=== PATIENT | male | born 1955 | race Caucasian/White ===

== ENCOUNTER 2017-09-02 20:29 | Inpatient (IN) ==
[2017-09-02] MEDS ORDERED: *HR* OxyCODONE/APAP 5/325 TABLET PO ONE (21:32)
--- NOTE | 2017-09-02 21:38 | Emergency Department Note ---
START Narrative - START START: I examined this patient and my medical decision-making was reviewed with the [employer] PROFESSOR/PA/Advanced Practice Nurse/Resident Physician. I agree with the documented findings, disposition and treatment plan as described except to the extent set forth below. ED attending note: Patient seen with emergency medicine resident Dr. BARRY. We independently evaluated the patient. We independently had [id number] contact with the patient. Please see a copy of his note for details of the history and physical, evaluation, management and disposition of this emergency Department patient. Briefly 62-year-old male presents with a day or 2 of nonexertional right flank and right chest pain he was tachycardic at rest and 117 seems regular. Patient has not seen a physician within 2 years. History of kidney stones but this "does not feel anything like that". He does have some myofascial tenderness on palpation of the right rib area. He has good breath sounds. Screening labs and EKG chest x-ray and analgesics are pending.
--- NOTE | 2017-09-02 21:44 | Emergency Department Note ---
Disposition Clinical Impression: Atrial fibrillation with RVR Pulmonary embolus Qualifiers: Pulmonary embolism type: other Chronicity: acute Acute cor pulmonale presence: without acute cor pulmonale Qualified Code(s): I26.99 - Other pulmonary embolism without acute cor pulmonale Disposition: Admitted As Inpatient Condition: Fair Time of Disposition: 00:12 Abdominal Pain HPI - General Chief Complaint: ED Abdominal Pain Stated Complaint: rt flank pain Time Seen by Provider: 09/02/17 21:16 Source: patient, family Nursing Notes Reviewed: Yes Vital Signs Reviewed: Yes - History of Present Illness HPI Narrative: Patient is a 62-year-old male who presents to [facility] ED with a chief complaint of right-sided lower chest pain. States his symptoms started earlier today. States he just recently returned from a trip to [place]. Denies any shortness of breath. No prior history of blood clots. No prior cardiac history. Patient has not been in to see a primary care physician in over 2 years. He is not on any current medications except for acid reflux. Patient is a smoker but denies any history of COPD or problems with his heart. Patient's pain is reproducible with palpation and patient feels like he may have strained himself by lifting heavy things over the last few days. Admits to a mild cough but states this is no worse than his normal smoker's cough. Pt Subjective Complaint: other (R lower chest pain) Onset (ago): day(s) Consistency: constant Pain Severity: severe Pain Scale: 9 Quality: stabbing, aching Radiation: none Migration to: no migration Improves with: nothing Worsens with: nothing Associated symptoms: Denies: nausea, vomiting, diarrhea, fever, chills Treatments prior to arrival: none - Related Data Home Medications Medication Instructions Recorded Confirmed Guaifenesin [Mucinex] 600 mg PO BID 09/02/17 09/02/17 Ibuprofen/Diphenhydramine Cit 1 each PO HS 09/02/17 09/02/17 [Advil Pm Caplet] Omeprazole Magnesium [Prilosec Otc] 20 mg PO DAILY 09/02/17 09/02/17 Allergies Allergy/AdvReac Type Severity Reaction Status Date / Time No Known Allergies Allergy Verified 09/02/17 20:56 All systems ED: reviewed and negative except as stated. Abdominal Pain PMH - Past Medical History Medical history: Reports: no medical history Male Surgical History: Reports: no surgical history Psychiatric history: Reports: no psych history - Social History Smoking status: Current every day smoker Alcohol use: Reports: none Drug use: Reports: none Physical Exam - General Limitations: no limitations General appearance: alert - Head Head exam: atraumatic, normocephalic, normal inspection - Eye Eye exam: Present: normal appearance, PERRL, EOMI - ENT ENT exam: normal exam, normal oropharynx, mucous membranes moist - Neck Neck exam: Present: normal inspection - Chest Chest inspection: Present: normal inspection, symmetric chest wall rise - Respiratory Respiratory exam: Present: normal lung sounds bilaterally - Cardiovascular Cardiovascular exam: Present: tachycardia, irregular rhythm - Abdominal Exam Abdominal exam: Present: soft, Non-Tender. Absent: tenderness, distention, guarding, rebound, rigidity - Extremities Exam Extremities exam: Present: normal inspection, full ROM. Absent: tenderness, pedal edema - Back Exam Back exam: Present: normal inspection, full ROM. Absent: tenderness - Neurological Exam Neurological exam: Present: alert, oriented X3 - Psychiatric Psychiatric exam: Present: normal affect, normal mood - Skin Skin exam: Present: warm, dry, intact, normal color Course Course Narrative: Patient seen and examined. Right-sided lower chest pain worse with inspiration and movement and palpation. Patient is hypoxemic upon my exam at 91% on room air. Due to him not having any history of COPD or prior lung disease and him not being on any oxygen at baseline, we will do a full cardiopulmonary workup. He is also tachycardic and appears to be in A. fib with RVR on the monitor. He has no prior history of this. We will get a d-dimer level to rule out PE. We will give a dose of Cardizem to see if this improves his heart rate. - Reevaluation(s) Reevaluation #1: Patient's d-dimer level elevated at 7000. We will go ahead and get a CTA of the chest. Patient's atrial fibrillation continues. He is hemodynamically stable at this time. Time: 22:10 Reevaluation #2: CTA of the chest shows segmental pulmonary emboli in all lobes of the lung. Will get coags and start heparin drip. I discussed with hospitalist Dr. Phoenix who has accepted patient for admission. Time: 00:07 Vital Signs Temperature 98.5 F 09/02/17 20:56 Pulse Rate 117 09/02/17 20:56 Respiratory Rate 18 09/02/17 20:56 Blood Pressure 138/78 09/02/17 20:56 O2 Sat by Pulse Oximetry 92 09/02/17 20:56 Temperature 98.5 F 09/02/17 20:56 Pulse Rate 134 09/02/17 23:19 Respiratory Rate 18 09/02/17 23:19 Blood Pressure 130/69 09/02/17 23:19 O2 Sat by Pulse Oximetry 96 09/02/17 23:19 Oxygen Delivery Oxygen Delivery Room Air Abdominal Pain - Medical Records Medical records reviewed: Yes I reviewed the patient's medical records. - Lab Data Lab results reviewed: Yes I reviewed the patient's lab results. Result diagrams: 09/02/17 22:02 09/02/17 22:02 Lab Results 09/02/17 09/02/17 09/02/17 Range/Units 22:02 22:02 22:02 WBC 12.4 H (4.3-11.1) K/mcL RBC 5.37 (4.19-5.50) M/mcL Hgb 15.9 (12.9-16.9) g/dL Hct 47.8 (37.5-50.1) % MCV 89.0 (83.0-100.0) fL MCH 29.6 (28.0-33.3) pg MCHC 33.3 (31.6-35.5) g/dL RDW 14.2 (11.5-14.5) % Plt Count 248 (140-400) K/mcL MPV 9.4 (9.4-12.4) fL Immature Gran % 0.4 (0-4) % Seg Neutrophils % 68.2 % Lymphocytes % 16.0 % Monocytes % 12.8 % Eosinophils % 2.1 % Basophils % 0.5 % Neutrophils # 8.5 (1.6-8.9) K/mcL Lymphocytes # 2.0 (0.6-4.6) K/mcL Monocytes # 1.6 H (0.0-1.3) K/mcL Eosinophils # 0.3 (0.0-0.6) K/mcL Basophils # 0.1 (0.0-0.2) K/mcL D-Dimer (0-500) ng/mLFEU Sodium 137 (136-145) mEq/L Potassium 4.0 (3.5-4.5) mEq/L Chloride 101 (98-109) mEq/L Carbon Dioxide 26 (19-29) mEq/L BUN 19 (8-26) mg/dL Creatinine 1.15 (0.72-1.25) mg/dL Est GFR ( Amer) > 60 (> 60) Est GFR (Non-Af Amer) > 60 (> 60) BUN/Creatinine Ratio 17 (6-26) Glucose 120 H (70-99) mg/dL Calculated Osmolality 287 (280-300) Calcium 9.7 (8.6-10.8) mg/dL Total Bilirubin 0.4 (0.2-1.2) mg/dL AST 12 (5-34) Units/L ALT 9 (0-55) Units/L Alkaline Phosphatase 75 (38-126) Units/L Troponin I 0.01 (0-0.03) ng/mL Serum Total Protein 8.3 (6.0-8.3) g/dL Albumin 3.5 (3.5-5.0) g/dL Globulin 4.8 H (2.4-3.5) g/dL Albumin/Globulin Ratio 0.7 L (1.1-2.2) 09/02/17 Range/Units 22:02 WBC (4.3-11.1) K/mcL RBC (4.19-5.50) M/mcL Hgb (12.9-16.9) g/dL Hct (37.5-50.1) % MCV (83.0-100.0) fL MCH (28.0-33.3) pg MCHC (31.6-35.5) g/dL RDW (11.5-14.5) % Plt Count (140-400) K/mcL MPV (9.4-12.4) fL Immature Gran % (0-4) % Seg Neutrophils % % Lymphocytes % % Monocytes % % Eosinophils % % Basophils % % Neutrophils # (1.6-8.9) K/mcL Lymphocytes # (0.6-4.6) K/mcL Monocytes # (0.0-1.3) K/mcL Eosinophils # (0.0-0.6) K/mcL Basophils # (0.0-0.2) K/mcL D-Dimer 7160 H (0-500) ng/mLFEU Sodium (136-145) mEq/L Potassium (3.5-4.5) mEq/L Chloride (98-109) mEq/L Carbon Dioxide (19-29) mEq/L BUN (8-26) mg/dL Creatinine (0.72-1.25) mg/dL Est GFR ( Amer) (> 60) Est GFR (Non-Af Amer) (> 60) BUN/Creatinine Ratio (6-26) Glucose (70-99) mg/dL Calculated Osmolality (280-300) Calcium (8.6-10.8) mg/dL Total Bilirubin (0.2-1.2) mg/dL AST (5-34) Units/L ALT (0-55) Units/L Alkaline Phosphatase (38-126) Units/L Troponin I (0-0.03) ng/mL Serum Total Protein (6.0-8.3) g/dL Albumin (3.5-5.0) g/dL Globulin (2.4-3.5) g/dL Albumin/Globulin Ratio (1.1-2.2) - Radiology Data Radiology results reviewed: Yes I reviewed the patient's radiology results. Chest X-Ray 09/02/17 21:31 IMPRESSION: Mild patchy airspace disease the right lung base, suggestive of atelectasis versus pneumonia. D/ / Ibrahima Espinoza MD / Ibrahima Espinoza MD Interpreting Provider: Ibrahima Espinoza MD Chest CTA 09/02/17 22:33 IMPRESSION: Evidence of pulmonary embolism which extends into all the lobes of the lung. Prominent right hilar lymph node. That could be reactive but a follow-up chest CT after resolution of acute symptoms is recommended. Findings were discussed with Dr. Rey at 8:20 pm on 09/02/2017. D/ / Ibrahima Espinoza MD / Ibrahima Espinoza MD Interpreting Provider: Ibrahima Espinoza MD - EKG Data EKG attestation: Yes I reviewed and interpreted this EKG. EKG results narrative: EKG done at 2136 shows atrial fibrillation with RVR with a rate of [address] depression in leads V3 through V6. No acute ST elevation. Findings do appear changed from prior EKG done 06/19/2010. Previously patient was in normal sinus rhythm without any signs of depression.
[2017-09-02 22:10] LABS: Basophils # 0.1 K/mcL (0.0-0.2); Basophils % 0.5 %; Eosinophils # 0.3 K/mcL (0.0-0.6); Eosinophils % 2.1 %; Hematocrit 47.8 % (37.5-50.1); Hemoglobin 15.9 g/dL (12.9-16.9); Immature Granulocytes % 0.4 % (0-4); Mean Corpuscular HGB Conc 33.3 g/dL (31.6-35.5); Mean Corpuscular Hemoglobin 29.6 pg (28.0-33.3); Mean Platelet Volume 9.4 fL (9.4-12.4); Monocytes # 1.6 K/mcL (0.0-1.3); Monocytes % 12.8 %; Neutrophils # 8.5 K/mcL (1.6-8.9); Platelet Count 248 K/mcL (140-400); Red Blood Count 5.37 M/mcL (4.19-5.50); Red Cell Distribution Width 14.2 % (11.5-14.5); Segmented Neutrophils % 68.2 %
[2017-09-02 22:25] LABS: Alanine Aminotransferase 9 Units/L (0-55); Albumin 3.5 g/dL (3.5-5.0); Albumin/Globulin Ratio 0.7 (1.1-2.2); Alkaline Phosphatase 75 Units/L (38-126); Aspartate Amino Transferase 12 Units/L (5-34); BUN/Creatinine Ratio 17 (6-26); Bilirubin,Total 0.4 mg/dL (0.2-1.2); Blood Urea Nitrogen 19 mg/dL (8-26); Calcium 9.7 mg/dL (8.6-10.8); Carbon Dioxide 26 mEq/L (19-29); Chloride 101 mEq/L (98-109); Globulin 4.8 g/dL (2.4-3.5); Glucose 120 mg/dL (70-99); Osmolality,Calculated 287 (280-300); Sodium 137 mEq/L (136-145); Total Protein 8.3 g/dL (6.0-8.3); eGFR For African Americans > 60 (> 60); eGFR For Non-African Americans > 60 (> 60)
[2017-09-02] MEDS ORDERED: *HR* Heparin 5,000 UNIT/ML VIAL IVP ONE (23:23)
[2017-09-02] MEDS ORDERED: *HR* Heparin 5,000 UNIT/ML VIAL IVP PRN ×2 (23:23)
[2017-09-02 23:53] LABS: Prothrombin Time 10.7 Seconds (9.4-12.1)
[2017-09-02 23:56] LABS: Activated Partial Thrombo Time 27.1 Seconds (26.0-36.0)
[2017-09-03] MEDS: Heparin 25,000 UNIT/500 ML D5W 25,000 UNIT/500 ML MLS IVC SCH ×2 (00:13→17:37)
[2017-09-03] MEDS ORDERED: *HR* Morphine 2 MG/ML SYRINGE IVP PRN (00:54)
[2017-09-03] MEDS ORDERED: Acetaminophen 325 MG TABLET PO PRN (00:54)
[2017-09-03] MEDS ORDERED: Naloxone 0.4 MG/ML INJ IVP PRN (00:54)
[2017-09-03] MEDS ORDERED: Ondansetron 4 MG/2 ML VIAL IVP PRN (00:54)
--- NOTE | 2017-09-03 01:07 | Internal Med History&Physical ---
Date of Encounter: 09/03/17 Time of Encounter: 23:30 Assessment and Plan (1) Pulmonary embolus Current visit: Yes Status: Acute New-onset PE. He traveled from [place] to [place]. Procoagulant workup ordered. Heme oncology need to be called in the morning. Patient is on IV heparin. Patient made aware of the complication associated with anticoagulation and treatment options discussed with patient who showed good understanding and negative and especially; made aware of risk of bleeding IN brain. Qualifiers: Pulmonary embolism type: other Chronicity: acute Acute cor pulmonale presence: without acute cor pulmonale Qualified Code(s): I26.99 - Other pulmonary embolism without acute cor pulmonale (2) Nicotine abuse Current visit: Yes Status: Acute Counseling provided (3) Chest pain Current visit: Yes Status: Acute Atypical chest pain checked serial troponins Qualifiers: Chest pain type: unspecified Qualified Code(s): R07.9 - Chest pain, unspecified (4) Atrial fibrillation with RVR Current visit: Yes Status: Acute New onset A. fib perhaps secondary to PE patient on IV heparin and IV Cardizem to check echocardiogram and TSH. Internal Medicine - H&P: HPI Chief complaint: Shortness of breath and right-sided chest pain Admitted From: Home Plans for Post Hospital Care: Home History of present illness: Mr. Barron is a 62 year old male with no significant past medical history except for GERD. Patient presented with right-sided chest pain and started this morning. 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 On EKG she was noted to have uncontrolled atrial fibrillation with RVR. IV Cardizem started to control the heart rate as well as IV heparin. Patient denies any other symptoms otherwise except for right- sided chest pain which is quite atypical and does not seem to radiate elsewhere no particular pattern or weight relation to rest or ambulation. D-dimer was noted positive therefore a CTA chest was done which showed diffuse PE in almost all lobes of the lung as well as hilar lymphadenopathy. Radiology has recommended follow-up CT chest was patient is more or less stable. As noted above echocardiogram ordered as well as ultrasound of leg and procoagulant workup. Apparently patient drove from [place]. Past Med Surg Social Fam HX - Past Medical History Medical history: no medical history Psychiatric history: no psych history - Social History Smoking Status: Current every day smoker Smokeless Tobacco Status: No Alcohol use: none Drug use: none Internal Medicine - H&P: Meds Guaifenesin [Mucinex] 600 mg PO BID 09/02/17 [History] Ibuprofen/Diphenhydramine Cit [Advil Pm Caplet] 1 each PO HS 09/02/17 [History] Omeprazole Magnesium [Prilosec Otc] 20 mg PO DAILY 09/02/17 [History] 3 Allergy/AdvReac Type Severity Reaction Status Date / Time No Known Allergies Allergy Verified 09/02/17 20:56 All Systems PM: A 10-system review of systems was performed and is negative for pertinent findings except as documented above in the HPI. - Constitutional Constitutional: no chills, no fever(s), no night sweats - EENT Eyes: no change in vision, no discharge, no pain, no photophobia Ears: no ear discharge, no ear pain, no tinnitus Nose, mouth and throat: no dysphagia, no nasal discharge, no neck pain, no sore throat - Cardiovascular Cardiovascular ROS IM: chest pain, dyspnea, no diaphoresis, no lightheadedness, no palpitations, no syncope - Respiratory Respiratory: no cough, no dyspnea, no wheezing, no excessive phlegm production - Gastrointestinal Gastrointestinal: no abdominal pain, no diarrhea, no hematemesis, no hematochezia, no melena, no nausea, no vomiting - Musculoskeletal Musculoskeletal ROS IM: no numbness, no tingling - Integumentary Integumentary IM: no rash, no unusual bruising - Neurological Neurological ROS: no confusion, no convulsions, no focal weakness, no numbness, no tingling, no tremor(s) - Hematologic/Lymphatic Hematologic/Lymphatic: no easy bruising - Constitutional Vitals: Temp Pulse Resp BP Pulse Ox 98.5 F 102 19 138/82 92 09/03/17 00:52 09/03/17 00:52 09/03/17 00:52 09/03/17 00:52 09/03/17 00:52 General appearance: Present: A&O X 3, no acute distress, answers questions appropriately - Head Head exam: Present: atraumatic, normocephalic - Eye Eye exam: Present: PERRL, conjuntiva pink, sclera anicteric Pupils: Present: PERRL - Neck Neck exam general surgery: Present: supple, trachea midline. Absent: lymphadenopathy - Respiratory Respiratory exam: Present: CTAB. Absent: accessory muscle use, rales, rhonchi, wheezes - Cardiovascular Cardiovascular exam: Present: irregular rhythm, +S1, +S2. Absent: diastolic murmur, gallop, rubs, systolic murmur - GI/Abdominal GI/Abdominal exam: Present: normal bowel sounds, soft, no peritoneal signs. Absent: distended, tenderness - Extremities Exam Extremities exam: Present: warm, radial pulses palpable and symmetrical. Absent : calf tenderness, cyanotic, pedal edema - Neurological Exam Neurological exam: Present: CN II-XII intact, oriented X3, no focal deficits. Absent: pronater drift, facial droop, speech deficit - Skin Skin exam: Present: dry, intact Internal Med - H&P Results - Labs CBC & Chem 7: 09/02/17 22:02 09/02/17 22:02
[2017-09-03 02:01] LABS: Basophils # 0.1 K/mcL (0.0-0.2); Basophils % 0.5 %; Eosinophils # 0.3 K/mcL (0.0-0.6); Eosinophils % 2.3 %; Hematocrit 44.8 % (37.5-50.1); Hemoglobin 14.9 g/dL (12.9-16.9); Immature Granulocytes % 0.4 % (0-4); Lymphocytes # 3.1 K/mcL (0.6-4.6); Lymphocytes % 23.4 %; Mean Corpuscular HGB Conc 33.3 g/dL (31.6-35.5); Mean Corpuscular Hemoglobin 29.5 pg (28.0-33.3); Mean Corpuscular Volume 88.7 fL (83.0-100.0); Mean Platelet Volume 9.8 fL (9.4-12.4); Monocytes # 1.8 K/mcL (0.0-1.3); Monocytes % 13.1 %; Platelet Count 249 K/mcL (140-400); Red Blood Count 5.05 M/mcL (4.19-5.50); Red Cell Distribution Width 14.4 % (11.5-14.5); Segmented Neutrophils % 60.3 %
[2017-09-03 02:15] LABS: Alanine Aminotransferase 9 Units/L (0-55); Albumin 3.4 g/dL (3.5-5.0); Albumin/Globulin Ratio 0.8 (1.1-2.2); Alkaline Phosphatase 70 Units/L (38-126); Aspartate Amino Transferase 10 Units/L (5-34); BUN/Creatinine Ratio 19 (6-26); Bilirubin,Total 0.4 mg/dL (0.2-1.2); Blood Urea Nitrogen 20 mg/dL (8-26); Calcium 9.4 mg/dL (8.6-10.8); Carbon Dioxide 26 mEq/L (19-29); Chloride 101 mEq/L (98-109); Chol/HDL Ratio 4.6 (0-4.9); Cholesterol 231 mg/dL (< 200); Globulin 4.3 g/dL (2.4-3.5); Glucose 113 mg/dL (70-99); HDL Cholesterol 50 mg/dL (40-59); LDL Cholesterol,Calculated 158 mg/dL (0-99); Osmolality,Calculated 285 (280-300); Potassium 3.7 mEq/L (3.5-4.5); Sodium 136 mEq/L (136-145); Total Protein 7.7 g/dL (6.0-8.3); Triglycerides 116 mg/dL (< 150); eGFR For African Americans > 60 (> 60); eGFR For Non-African Americans > 60 (> 60)
[2017-09-03] MEDS: 0.9 % Sodium Chloride 1,000 ML IVC SCH ×2 (02:35→14:09)
[2017-09-03] MEDS: Nicotine 21 MG PATCH.TD24 TD SCH (08:51)
[2017-09-03] MEDS: *HR* OxyCODONE/APAP 5/325 TABLET PO PRN ×3 (09:26→20:00)
--- NOTE | 2017-09-03 14:20 | Cardiology Consult Note ---
<Chana Lopez - Last Filed: 09/03/17 14:44> Date of Encounter: 09/03/17 Time of Encounter: 13:30 Assessment and Plan (1) Pulmonary embolus Current Visit: Yes Status: Acute Per cardiology: -Admitted with acute shortness of breath. -bilateral PE noted on CT. -Currently on heparin drip. -Management per primary service. Qualifiers: Pulmonary embolism type: other Chronicity: acute Acute cor pulmonale presence: without acute cor pulmonale Qualified Code(s): I26.99 - Other pulmonary embolism without acute cor pulmonale (2) Atrial fibrillation with RVR Current Visit: Yes Status: Acute Per cardiology: -No previous history of atrial fibrillation. -Atrial fibrillation noted on telemetry. -Currently on cardizem drip at 10mg/hour. -Now SR, average HR 83. -Echo with LVEF 60-65%, mild pulmonary hypertension, no significant valvular dysfunction, all ernst with normal motion. -Chads 2 vasc score 0. 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 Management per primary team. -Will change cardizem to po. Will stop cardizem drip. -Anticoagulation to be addressed by primary team (patient states he prefers coumadin). -Anticipate cardiology will sign off and will follow in outpatient setting. Follow up set. Discussion w patient/family: The assessment and plan as outlined above was discussed with the patient and/or family members who expressed understanding and agreement. All questions were answered. Thank you for involving us in the care of your patient. Please call with any questions. Discussed and reviewed with Dr.John Lozada. History of Present Illness Consult date: 09/03/17 Requesting physician: Aaron Whittington Consult reason: a.fib Chief complaint: shortness of breath History of present illness: Mr. Barron is a 62 year old male with no significant past medical history. Patient presented to [facility] with complaints of shortness of breath. Patient was noted to have bilateral pulmonary emboli per CT. Cardiology has been asked to see and evaluate patient due to atrial fibrillation. Patient denies palpitations or fluttering. Patient admits to shortness of breath. Patient denies current chest pain, states he had some right sided chest pain on admission. Past Med Surg Social Fam HX - Past Medical History Attestation: Yes The following information was validated with the patient. Source: patient, old records reviewed Medical history: no medical history Psychiatric history: no psych history - Social History Smoking Status: Current every day smoker Packs per day: 1.5 Smokeless Tobacco Status: No Alcohol use: none Drug use: none - Family History Mother Name: VIC Living Status: Age at : 89 Hx Family Cardiac Disorders: Yes Hx Family Respiratory Disorders: Yes Hx Family Cancer: Yes Hx Family GI Disorders: No Hx Family Genitourinary Disorders: No Hx Family Endocrine Disorder: No Hx Family Musculoskeletal Disorders: Yes Hx Family Neuromuscular Disorders: No Hx Family Neurologic Disorders: No Hx Family HEENT Disorders: No Hx Family Autoimmune Disorders: No Hx Family Reproductive Disorders: No Hx Family Psychosocial Disorders: Yes Hx Family Medical Disorders: No Medications and Allergies Guaifenesin [Mucinex] 600 mg PO BID 09/02/17 [History] Ibuprofen/Diphenhydramine Cit [Advil Pm Caplet] 1 each PO HS 09/02/17 [History] Omeprazole Magnesium [Prilosec Otc] 20 mg PO DAILY 09/02/17 [History] 3 Allergy/AdvReac Type Severity Reaction Status Date / Time No Known Allergies Allergy Verified 09/02/17 20:56 All Systems Review: A 10-system review of systems was performed and is negative for pertinent findings except as documented above in the HPI. - Cardiovascular Cardiovascular: as per HPI, dyspnea at rest, dyspnea on exertion Physical Examination Vital Signs, Last 4 Hours Pulse Resp BP Pulse Ox 09/03/17 14:00 71 113/79 09/03/17 13:00 73 123/75 09/03/17 12:20 82 18 116/74 90 General: Conversant, Other (Conversational dyspnea noted. ) HEENT: Atraumatic, Normocephaly, Mucus Membranes Moist Neck: No JVD, Normal carotid pulses Cardiac: Reg Rate and Rhythm, Normal S1 and S2, No Murmur Lungs: Normal Breath Sounds, No Wheeze, Rales, Rhonchi Neuro: Alert and responsive, No focal deficits noted Abdomen: Soft, Non-Tender Skin: No rashes noted on visualized skin Musculoskeletal: No Chest Wall Tenderness Extremities: No Clubbing, No Cyanosis, No Edema, Normal Pulses Results 09/03/17 01:47 09/03/17 01:47 Lab Results Impressions Chest X-Ray 09/02/17 21:31 IMPRESSION: Mild patchy airspace disease the right lung base, suggestive of atelectasis versus pneumonia. D/ / Ibrahima Espinoza MD / Ibrahima Espinoza MD Interpreting Provider: Ibrahima Espinoza MD Chest CTA 09/02/17 22:33 IMPRESSION: Evidence of pulmonary embolism which extends into all the lobes of the lung. Prominent right hilar lymph node. That could be reactive but a follow-up chest CT after resolution of acute symptoms is recommended. Findings were discussed with Dr. Rey at 8:20 pm on 09/02/2017. D/ / Ibrahima Espinoza MD / Ibrahima Espinoza MD Interpreting Provider: Ibrahima Espinoza MD Echocardiogram 09/03/17 01:11 Impressions: Normal right ventricular structure and function. LVEF 60-65%. Mild pulmonary hypertension. No significant valvular dysfunction. Left Ventricular Wall Motion: Rest Echo Findings All wall segments showed normal motion. Findings: Study Quality * Technically adequate exam. Right Ventricle * Normal right ventricular structure and function. Right Atrium * Normal right atrial size. Aortic Valve * Trileaflet aortic valve with normal function. Mitral Valve * Normal mitral valve structure and function. Interatrial Septum * No evidence of PFO by color Doppler. Aorta * Normally sized aortic root. Pericardium * The pericardium appears normal. Left Ventricle * LVEF 60-65%. * Indeterminate diastolic function. ECG Findings * Normal sinus rhythm. Left Atrium * Moderately dilated left atrium. Tricuspid Valve * Estimated RVSP is 37 mmHg. * Estimated RA pressure is 3-5 mmHg. * Mild pulmonary hypertension. * Trace tricuspid regurgitation. * No tricuspid stenosis. IVC * Normal IVC dimensions and inspiratory collapse. Pulmonic Valve * Pulmonic valve is not well visualized. Active Medications Acetaminophen (Tylenol) 650 mg PO Q6HR PRN PRN Reason: Mild Pain (1-3) Stop: 03/05/18 00:55 Diltiazem HCl (Cardizem Cd) 240 mg PO DAILY [facility] Stop: 03/05/18 14:16 Docusate Sodium (Colace) 100 mg PO BID PRN PRN Reason: Constipation Stop: 03/05/18 00:55 Guaifenesin (Mucinex) 600 mg PO BID [facility] Stop: 03/05/18 01:01 Last Admin: 09/03/17 08:52 Dose: 600 mg Heparin Sodium (Porcine) (Heparin) 7,600 unit 70 unit/kg (7600 unit) IVP Q6HR PRN PRN Reason: SEE COMMENTS Stop: 03/04/18 23:24 Heparin Sodium (Porcine) (Heparin) 3,800 unit 35 unit/kg (3800 unit) IVP Q6H PRN PRN Reason: SEE COMMENTS Stop: 03/04/18 23:24 Heparin Sodium/Dextrose (Heparin 25,000 Unit/500 Ml D5w) 25,000 unit in 500 mls @ 30.481 mls/hr IVC .[id number] PERLITA; 14 UNIT/KG/HR PRN Reason: Protocol Stop: 03/04/18 23:31 Last Titration: 09/03/17 07:33 Dose: 13.96 unit/kg/hr, 30.4 mls/hr Sodium Chloride (0.9 % Sodium Chloride) 1,000 mls @ 75 mls/hr IVC .[id number] [facility] Stop: 03/05/18 01:01 Last Admin: 09/03/17 14:09 Dose: 75 mls/hr Naloxone HCl (Narcan) 0.4 mg IVP Q2MIN PRN PRN Reason: Opioid Reversal Stop: 03/05/18 00:55 Nicotine (Nicoderm) 21 mg TD DAILY PERLITA PRN Reason: Protocol Stop: 03/05/18 09:01 Last Admin: 09/03/17 08:51 Dose: 21 mg Omeprazole (Prilosec) 20 mg PO DAILY@0630 PERLITA PRN Reason: Protocol Stop: 03/05/18 06:31 Last Admin: 09/03/17 05:30 Dose: 20 mg Ondansetron HCl (Zofran) 4 mg IVP Q8HR PRN PRN Reason: Nausea And Vomiting Stop: 03/05/18 00:55 Oxycodone/Acetaminophen (Percocet 5/325) 1 each PO Q4HR PRN PRN Reason: Pain Stop: 03/05/18 08:57 Last Admin: 09/03/17 09:26 Dose: 1 each Laboratory Tests 09/02/17 09/03/17 09/03/17 22:02 01:47 01:47 WBC 13.3 H Potassium Creatinine Troponin I 0.01 0.01 TSH 09/03/17 09/03/17 09/03/17 01:47 01:47 08:01 WBC Potassium 3.7 Creatinine 1.04 Troponin I 0.01 TSH 5.872 H 09/03/17 13:26 WBC Potassium Creatinine Troponin I 0.00 TSH - Imaging and Cardiology Chest Xray: report reviewed Echo: report reviewed - EKG Interpretation EKG results cardiology: personally reviewed (ECG with SR, HR 72.), other ( Telemetry reviewed with average HR 83. Patient was atrial fibrillation and converted to SR around 0200. Longest pause noted to be 1.4seconds. PVCs and PACs noted.) Consult Discharge Plan - Plan Referrals: Matt Almaraz MD [Primary Care Provider] - <Demetrius Lozada - Last Filed: 09/03/17 15:45> Date of Encounter: 09/03/17 - Attending Attestation I have personally performed a face to face evaluation on this patient. I have reviewed and agree with the care plan. History and Exam by me shows: AF with RVR in setting of pulmonary emboli. Would recommend rate control, anticoagulation will be needed due to PE. Assessment and Plan Discussion w patient/family: The assessment and plan as outlined above was discussed with the patient and/or family members who expressed understanding and agreement. All questions were answered. Thank you for involving us in the care of your patient. Please call with any questions. History of Present Illness History of present illness: Mr. Barron is a 62 year old male All Systems Review: A 10-system review of systems was performed and is negative for pertinent findings except as documented above in the HPI. Physical Examination Vital Signs, Last 4 Hours Temp Pulse Resp BP Pulse Ox 09/03/17 15:36 98.5 F 81 18 123/63 90 09/03/17 15:27 85 122/78 90 09/03/17 14:00 71 113/79 09/03/17 13:00 73 123/75 09/03/17 12:20 82 18 116/74 90 Results 09/03/17 01:47 09/03/17 01:47 Lab Results 09/03/17 09/03/17 09/03/17 01:47 01:47 01:47 WBC 13.3 H Hgb 14.9 Hct 44.8 Plt Count 249 APTT Sodium 136 Potassium 3.7 Chloride 101 Carbon Dioxide 26 BUN 20 Creatinine 1.04 Glucose 113 H Calcium 9.4 Total Bilirubin 0.4 AST 10 ALT 9 Alkaline Phosphatase 70 Troponin I 0.01 TSH 09/03/17 09/03/17 09/03/17 01:47 06:40 08:01 WBC Hgb Hct Plt Count APTT 91.2 H D Sodium Potassium Chloride Carbon Dioxide BUN Creatinine Glucose Calcium Total Bilirubin AST ALT Alkaline Phosphatase Troponin I 0.01 TSH 5.872 H 09/03/17 09/03/17 13:26 13:26 WBC Hgb Hct Plt Count APTT 70.9 H Sodium Potassium Chloride Carbon Dioxide BUN Creatinine Glucose Calcium Total Bilirubin AST ALT Alkaline Phosphatase Troponin I 0.00 TSH
[2017-09-03] MEDS: Diltiazem CD (24hr) 240 MG CAPSULE PO SCH (15:10)
--- NOTE | 2017-09-03 16:13 | Oncology Inp Consult Note ---
<Sebastian Hagen Jr - Last Filed: 09/03/17 16:27> Date of Encounter: 09/03/17 Time of Encounter: 14:45 Assessment and Plan (1) Pulmonary embolus Status: Acute Assessment and plan: This is a very pleasant 62-year-old male with new diagnosis of pulmonary embolus. She will work her in pharmacist in the room during encounter , with at the bedside. He has no previous personal history of blood clots or cancer. He states he had chest pain or shortness of breath, and came to the emergency room for evaluation. He also stated that his mother was on lifelong Coumadin due to history of DVT. He has a sister that also has a history of DVT on intermittent blood thinners. He states he does not know if the family was ever diagnosed with any type of Factor V or VII deficiency. Recommendation is to transition the patient off heparin drip to Xarelto 15 mg by mouth twice daily for the first 21 days, then Xarelto 20 mg daily thereafter. He lives the [facility]. He currently has no insurance. 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 We spoke at length about different blood thinners. Patient does qualify for HCAP, and [facility] would pay for treatment at the Coumadin clinic locally. However , patient wants the convenience of no blood testing. His preference is Xarelto , and this is reasonable. If financial assistance from the DC or eyeglass frame truer of Xarelto cannot be secured , we could place him on Coumadin at that time with assistance of HCAP. He will get free xarelto with copay card as outpatient for first 30 day supply. At discharge, please make appointment with Dr. Fabian Pereira at [facility]. This will be his strategic account director as an outpatient. She will assess the patient later today or tomorrow morning, and agrees with above plan. I left my business card with the patient. Qualifiers: Pulmonary embolism type: other Chronicity: acute Acute cor pulmonale presence: without acute cor pulmonale Qualified Code(s): I26.99 - Other pulmonary embolism without acute cor pulmonale - Data of Consult Patient: new to practice Consult date: 09/03/17 Requesting Physician: Aaron Whittington Primary Care Provider: Matt Almaraz MD - Consult Narrative Reason for consult: new pulmonary emboli History of present illness: Mr. Barron is a 62 year old male with no significant past medical history except for GERD. Patient presented with right-sided chest pain and shortness of breath. On EKG she was noted to have uncontrolled atrial fibrillation with RVR. IV Cardizem started to control the heart rate as well as IV heparin. D-dimer was noted positive therefore a CTA chest was done which showed diffuse PE in almost all lobes of the lung as well as hilar lymphadenopathy. Radiology has recommended follow-up CT chest was patient is more or less stable. Echocardiogram ordered as well as ultrasound of leg. The patient states that his mother was on lifelong Coumadin due to DVT history, and a sister also was on Coumadin due to DVT history, but this was not lifelong treatment. He does not know if family was tested for any inherited disorders. Hematology consulted for anticoagulation recommendations. Past Med Surg Social Fam HX - Past Medical History Medical history: GERD Psychiatric history: no psych history - Social History Smoking Status: Current every day smoker Packs per day: 1.5 Smokeless Tobacco Status: No Alcohol use: none Drug use: none - Family History Mother Name: VIC Living Status: Age at : 89 Hx Family Cardiac Disorders: Yes Hx Family Respiratory Disorders: Yes Hx Family Cancer: Yes Hx Family GI Disorders: No Hx Family Genitourinary Disorders: No Hx Family Endocrine Disorder: No Hx Family Musculoskeletal Disorders: Yes Hx Family Neuromuscular Disorders: No Hx Family Neurologic Disorders: No Hx Family HEENT Disorders: No Hx Family Autoimmune Disorders: No Hx Family Reproductive Disorders: No Hx Family Psychosocial Disorders: Yes Hx Family Medical Disorders: Yes (lifelong coumadin due to DVT) Sister Hx Family Medical Disorders: Yes (Hx DVT on blood thinners for several months) Medications and Allergies Guaifenesin [Mucinex] 600 mg PO BID 09/02/17 [History] Ibuprofen/Diphenhydramine Cit [Advil Pm Caplet] 1 each PO HS 09/02/17 [History] Omeprazole Magnesium [Prilosec Otc] 20 mg PO DAILY 09/02/17 [History] Diltiazem CD (24hr) [Cardizem CD] 240 mg PO DAILY #30 cap.er.24h 09/05/17 [Rx] Rivaroxaban [Xarelto] 20 mg PO 1700 #30 tablet 09/05/17 [Rx] 3 Allergy/AdvReac Type Severity Reaction Status Date / Time No Known Allergies Allergy Verified 09/02/17 20:56 Cardiovascular: Present: chest pain Respiratory: Present: dyspnea Oncology - Exam - Constitutional Vitals: Temp Pulse Resp BP Pulse Ox 98.5 F 81 18 123/63 90 09/03/17 15:36 09/03/17 15:36 09/03/17 15:36 09/03/17 15:36 09/03/17 15:36 General appearance: cooperative, no acute distress - Head Head exam: Present: atraumatic, normal inspection - ENT ENT exam: Present: mucous membranes moist - Neck Neck exam: Present: full ROM, normal inspection - Extremities Exam Extremities exam: Present: joint swelling, pedal edema - Neurological Exam Neurological exam: Present: alert, oriented X3, no focal deficits - Psychiatric Psychiatric exam: Present: normal affect, normal mood - Skin Skin exam: Present: dry, intact, warm Oncology - Results Labs: Short CBC 09/03/17 Range/Units 01:47 WBC 13.3 H (4.3-11.1) K/mcL Hgb 14.9 (12.9-16.9) g/dL Hct 44.8 (37.5-50.1) % Plt Count 249 (140-400) K/mcL Neutrophils # 8.0 (1.6-8.9) K/mcL BMP 09/03/17 01:47 Sodium 136 Potassium 3.7 Chloride 101 Carbon Dioxide 26 BUN 20 Creatinine 1.04 Glucose 113 H Calcium 9.4 Cardiac Enzymes 09/03/17 09/03/17 09/03/17 Range/Units 01:47 08:01 13:26 Troponin I 0.01 0.01 0.00 (0-0.03) ng/mL Liver Function 09/03/17 Range/Units 01:47 Total Bilirubin 0.4 (0.2-1.2) mg/dL AST 10 (5-34) Units/L ALT 9 (0-55) Units/L Alkaline Phosphatase 70 (38-126) Units/L Albumin 3.4 L (3.5-5.0) g/dL Consult Discharge Plan - Plan Instructions: Diltiazem (By mouth), Rivaroxaban (By mouth), Atrial Fibrillation (DC), Pulmonary Embolism (DC), Heart Healthy Diet (DC) Referrals: Matt Almaraz MD [Primary Care Provider] - (patient to call and schedule follow up appointment. ) Fabian Pereira MD [Partnered Physician] - (web request sent, office to call with appointment. ) Chana Lopez CNP [Advanced Practice Nurse] - (cardiology office to call with follow up appointment. ) Prescriptions: Diltiazem CD (24hr) [Cardizem CD] 240 mg PO DAILY #30 cap.er.24h Rivaroxaban [Xarelto] 20 mg PO 1700 #30 tablet <Jann,Solomon S - Last Filed: 09/06/17 09:06> Date of Encounter: 09/06/17 - Data of Consult Requesting Physician: Aaron Whittington Primary Care Provider: Matt Almaraz MD - Consult Narrative History of present illness: Mr. Barron is a 62 year old male Oncology - Exam - Constitutional Vitals: Temp Pulse Resp BP Pulse Ox 98.4 F 76 18 105/76 92 09/05/17 11:43 09/05/17 11:43 09/05/17 11:43 09/05/17 11:43 09/05/17 15:56 Oncology - Results Labs: Short CBC 09/05/17 Range/Units 09:47 WBC 10.8 (4.3-11.1) K/mcL Hgb 13.8 (12.9-16.9) g/dL Hct 41.4 (37.5-50.1) % Plt Count 266 (140-400) K/mcL Neutrophils # 7.9 (1.6-8.9) K/mcL BMP 09/05/17 09:47 Sodium 135 L Potassium 3.8 Chloride 100 Carbon Dioxide 26 BUN 12 Creatinine 0.78 Glucose 123 H Calcium 9.2 - Attending Attestation 1. Bilateral PE by CT angiogram chest. This appears to be unprovoked. No recent long range travel. No muscle or bone injury. Denied symptoms of lower extremity DVT. Bilateral venous Doppler negative for DVT as well. D-dimer elevated at 7100 Hypercoagulable workup showed low protein S of 29%. Protein C normal at 278%. Lupus anticoagulant and anticardiolipin antibodies negative. Factor V Leiden pending He was started on heparin and transitioned to Xarelto. Duration of anticoagulation to be determined. If he has protein S deficiency he may need lifelong anticoagulation 2. Atrial fibrillation with RVR. Initially on Cardizem drip and discharged on Cardizem by mouth. Cardiology consult noted Atrial fibrillation could be secondary to PE. He had no previous history of atrial fibrillation Echocardiogram showed ejection fraction 60% and mild pulmonary hypertension. No valvular abnormalities
--- NOTE | 2017-09-03 18:36 | Internal Med Progress Note ---
Date of Encounter: 09/03/17 Time of Encounter: 11:00 - Assessment and plan (1) Pulmonary embolus Current Visit: Yes Status: Acute Assessment and plan: -Evidence of pulmonary embolism which extends into all the lobes of the lung. -Echo with LVEF 60-65%, mild pulmonary hypertension, no significant valvular dysfunction, all ernst with normal motion. -Patient still requires supplemental oxygen. -Hematology/oncology consult at both recommendations to start Xarelto. 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 -Cardiology consult with recommendations to change cardizem to po. (3) Nicotine abuse Current Visit: Yes Status: Acute Assessment and plan: -Discussed with patient about smoking sensation -We will order CT of chest due to prominent right hilar lymph node noted on CT angiogram of chest that could be reactive - Subjective Interval history: Patient still requiring supplemental oxygen - Constitutional Vitals: Temp Pulse Resp BP Pulse Ox 98.5 F 86 18 126/69 91 09/03/17 15:36 09/03/17 17:45 09/03/17 15:36 09/03/17 17:45 09/03/17 17:45 General appearance: Present: A&O X 3, no acute distress, answers questions appropriately - Respiratory Respiratory exam: Present: CTAB. Absent: accessory muscle use, rales, rhonchi, wheezes - Cardiovascular Cardiovascular exam: Present: RRR, +S1, +S2. Absent: diastolic murmur, gallop, rubs, systolic murmur Internal Medicine: Result - Labs CBC & Chem 7: 09/03/17 01:47 09/03/17 01:47 Labs: Short CBC 09/03/17 Range/Units 01:47 WBC 13.3 H (4.3-11.1) K/mcL Hgb 14.9 (12.9-16.9) g/dL Hct 44.8 (37.5-50.1) % Plt Count 249 (140-400) K/mcL Neutrophils # 8.0 (1.6-8.9) K/mcL BMP 09/03/17 01:47 Sodium 136 Potassium 3.7 Chloride 101 Carbon Dioxide 26 BUN 20 Creatinine 1.04 Glucose 113 H Calcium 9.4 Cardiac Enzymes 09/03/17 09/03/17 09/03/17 Range/Units 01:47 08:01 13:26 Troponin I 0.01 0.01 0.00 (0-0.03) ng/mL Liver Function 09/03/17 Range/Units 01:47 Total Bilirubin 0.4 (0.2-1.2) mg/dL AST 10 (5-34) Units/L ALT 9 (0-55) Units/L Alkaline Phosphatase 70 (38-126) Units/L Albumin 3.4 L (3.5-5.0) g/dL - ABG Interpretation ABG results: PT/INR, D-dimer PT 10.7 Seconds (9.4-12.1) 09/02/17 22:02 D-Dimer 7160 ng/mLFEU (0-500) H 09/02/17 22:02 - Impressions Impressions Echocardiogram 09/03/17 01:11 Impressions: Normal right ventricular structure and function. LVEF 60-65%. Mild pulmonary hypertension. No significant valvular dysfunction. Left Ventricular Wall Motion: Rest Echo Findings All wall segments showed normal motion. Findings: Study Quality * Technically adequate exam. Right Ventricle * Normal right ventricular structure and function. Right Atrium * Normal right atrial size. Aortic Valve * Trileaflet aortic valve with normal function. Mitral Valve * Normal mitral valve structure and function. Interatrial Septum * No evidence of PFO by color Doppler. Aorta * Normally sized aortic root. Pericardium * The pericardium appears normal. Left Ventricle * LVEF 60-65%. * Indeterminate diastolic function. ECG Findings * Normal sinus rhythm. Left Atrium * Moderately dilated left atrium. Tricuspid Valve * Estimated RVSP is 37 mmHg. * Estimated RA pressure is 3-5 mmHg. * Mild pulmonary hypertension. * Trace tricuspid regurgitation. * No tricuspid stenosis. IVC * Normal IVC dimensions and inspiratory collapse. Pulmonic Valve * Pulmonic valve is not well visualized. Consult Discharge Plan - Plan Referrals: Matt Almaraz MD [Primary Care Provider] -
--- NOTE | 2017-09-03 19:07 | Electrocardiograph Report ---
[place] [id number] Test Date: 2017-09-02 Pat Name: Niels Barron Department: 103 Room: 2N15 Gender: M Broadcast Engineer: : 1955 Requested By: Juvenal Cabral Order Number: [id number] Reading MD: Mary Ellen Lozada Measurements Intervals [place] Rate: 150 P: IN: 0 QRS: 61 QRSD: 94 T: 19 QT: 262 QTc: 347 Interpretive Statements ATRIAL FIBRILLATION WITH RAPID VENTRICULAR RESPONSE INCOMPLETE RIGHT BUNDLE BRANCH BLOCK [90+ ms QRS DURATION, TERMINAL R IN V1/V2, 40+ ms S IN I/aVL/V4/V5/V6] NONSPECIFIC ST & T-WAVE ABNORMALITY ABNORMAL RHYTHM ECG Electronically Signed On 09-03-2017 19:05:32 EDT by Mary Ellen Lozada
[2017-09-03] MEDS: *HR* Rivaroxaban 10 MG TABLET PO SCH (19:44)
[2017-09-04] MEDS: *HR* OxyCODONE/APAP 5/325 TABLET PO PRN ×4 (03:35→19:42)
[2017-09-04] MEDS: 0.9 % Sodium Chloride 1,000 ML IVC SCH ×2 (03:36→19:43)
[2017-09-04] MEDS: Nicotine 21 MG PATCH.TD24 TD SCH (07:53)
[2017-09-04] MEDS: Diltiazem CD (24hr) 240 MG CAPSULE PO SCH (07:53)
[2017-09-04] MEDS: *HR* Rivaroxaban 10 MG TABLET PO SCH (17:40)
--- NOTE | 2017-09-04 18:24 | Internal Med Progress Note ---
Date of Encounter: 09/04/17 Time of Encounter: 11:00 - Assessment and plan (1) Pulmonary embolus Current Visit: Yes Status: Acute Assessment and plan: -Evidence of pulmonary embolism which extends into all the lobes of the lung. -Echo with LVEF 60-65%, mild pulmonary hypertension, no significant valvular dysfunction, all ernst with normal motion. -Patient still requires supplemental oxygen. -Hematology/oncology consult at both recommendations to start Xarelto. 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 -Cardiology consult with recommendations to change cardizem to po. -Patient however now back in atrial fibrillation with RVR so Cardizem drip was restarted. (3) Nicotine abuse Current Visit: Yes Status: Acute Assessment and plan: -Discussed with patient about smoking sensation -CT of chest showed significant interval change since 09/02/2017, of mediastinal and right hilar adenopathy. - Subjective Interval history: Patient still requiring supplemental oxygen Patient now also in atrial fibrillation with RVR - Constitutional Vitals: Temp Pulse Resp BP Pulse Ox 98.0 F 71 18 122/82 92 09/04/17 08:08 09/04/17 14:15 09/04/17 12:35 09/04/17 14:15 09/04/17 12:50 General appearance: Present: A&O X 3, no acute distress, answers questions appropriately - Respiratory Respiratory exam: Present: CTAB. Absent: accessory muscle use, rales, rhonchi, wheezes - Cardiovascular Cardiovascular exam: Present: +S1, +S2. Absent: diastolic murmur, gallop, RRR, rubs, systolic murmur Internal Medicine: Result - Labs CBC & Chem 7: 09/03/17 01:47 09/03/17 01:47 - ABG Interpretation ABG results: PT/INR, D-dimer PT 10.7 Seconds (9.4-12.1) 09/02/17 22:02 D-Dimer 7160 ng/mLFEU (0-500) H 09/02/17 22:02 - Impressions Impressions Chest CT 09/04/17 08:30 IMPRESSION: 1. No significant interval change since 09/02/2017, of mediastinal and right hilar adenopathy. 2. Small right pleural effusion with adjacent atelectasis. Wedge-shaped opacity in the right lower lobe is also not significantly changed and could represent an infarct versus atelectasis. 3. Emphysematous changes. D/ /04/2017 09:10:21 Veronica Madden MD / [facility] Interpreting Provider: Veronica Madden MD Consult Discharge Plan - Plan Referrals: Matt Almaraz MD [Primary Care Provider] -
[2017-09-05] MEDS: 0.9 % Sodium Chloride 1,000 ML IVC SCH (07:54)
[2017-09-05] MEDS: Nicotine 21 MG PATCH.TD24 TD SCH (07:54)
[2017-09-05] MEDS: *HR* OxyCODONE/APAP 5/325 TABLET PO PRN (07:54)
[2017-09-05 10:35] LABS: Basophils % 0.3 %; Eosinophils # 0.3 K/mcL (0.0-0.6); Eosinophils % 2.5 %; Hematocrit 41.4 % (37.5-50.1); Hemoglobin 13.8 g/dL (12.9-16.9); Immature Granulocytes % 0.5 % (0-4); Lymphocytes # 1.5 K/mcL (0.6-4.6); Lymphocytes % 13.8 %; Mean Corpuscular HGB Conc 33.3 g/dL (31.6-35.5); Mean Corpuscular Hemoglobin 29.6 pg (28.0-33.3); Mean Corpuscular Volume 88.7 fL (83.0-100.0); Mean Platelet Volume 9.8 fL (9.4-12.4); Monocytes # 1.1 K/mcL (0.0-1.3); Monocytes % 9.8 %; Neutrophils # 7.9 K/mcL (1.6-8.9); Platelet Count 266 K/mcL (140-400); Red Blood Count 4.67 M/mcL (4.19-5.50); Segmented Neutrophils % 73.1 %
[2017-09-05 10:51] LABS: BUN/Creatinine Ratio 15 (6-26); Blood Urea Nitrogen 12 mg/dL (8-26); Calcium 9.2 mg/dL (8.6-10.8); Carbon Dioxide 26 mEq/L (19-29); Chloride 100 mEq/L (98-109); Glucose 123 mg/dL (70-99); Osmolality,Calculated 281 (280-300); Potassium 3.8 mEq/L (3.5-4.5); Sodium 135 mEq/L (136-145); eGFR For African Americans > 60 (> 60); eGFR For Non-African Americans > 60 (> 60)
[2017-09-05] MEDS: Diltiazem CD (24hr) 240 MG CAPSULE PO SCH (10:51)
--- NOTE | 2017-09-05 11:02 | Electrocardiograph Report ---
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
--- NOTE | 2017-09-05 11:22 | Electrocardiograph Report ---
[place] [id number] Test Date: 2017-09-03 Pat Name: Niels Barron Department: 110 Room: 2N15 Gender: M Tacker Off: JIGNESH : 1955 Requested By: Aaron Whittington Order Number: [id number] Reading MD: Demetrius Lozada Measurements Intervals [place] Rate: 109 P: NV: 0 QRS: 59 QRSD: 96 T: -7 QT: 332 QTc: 396 Interpretive Statements PAROXSYSMAL ATRIAL FIBRILLATION WITH RAPID VENTRICULAR RESPONSE Electronically Signed On 09-05-2017 11:21:13 EDT by Demetrius Lozada
[2017-09-05 11:45] VITALS: BP 105/76
--- NOTE | 2017-09-05 16:22 | Discharge Summary ---
Date of Encounter: 09/05/17 Time of Encounter: 11:00 - Discharge Diagnosis (1) Pulmonary embolus Priority: Primary Status: Acute Qualifiers: Pulmonary embolism type: other Chronicity: acute Acute cor pulmonale presence: without acute cor pulmonale Qualified Code(s): I26.99 - Other pulmonary embolism without acute cor pulmonale (2) Atrial fibrillation with RVR Priority: Primary Status: Acute (3) Nicotine abuse Priority: Secondary Status: Acute - Discharge Medications Prescriptions: Diltiazem CD (24hr) [Cardizem CD] 240 mg PO DAILY #30 cap.er.24h Rivaroxaban [Xarelto] 20 mg PO 1700 #30 tablet Home Medications: Guaifenesin [Mucinex] 600 mg PO BID 09/02/17 [History] Ibuprofen/Diphenhydramine Cit [Advil Pm Caplet] 1 each PO HS 09/02/17 [History] Omeprazole Magnesium [Prilosec Otc] 20 mg PO DAILY 09/02/17 [History] Diltiazem CD (24hr) [Cardizem CD] 240 mg PO DAILY #30 cap.er.24h 09/05/17 [Rx] Rivaroxaban [Xarelto] 20 mg PO 1700 #30 tablet 09/05/17 [Rx] Allergies/Adverse Reactions: 3 Allergy/AdvReac Type Severity Reaction Status Date / Time No Known Allergies Allergy Verified 09/02/17 20:56 Procedures/tests Complete & Pending: Procedures Performed prior 72 hours Category Date Time Status CT chest w con [CT] Routine Cat Scan 09/04/17 08:30 Draft ECG 12 lead ECG [ECG] Routine Y 09/03/17 09:56 Completed ECG 12 lead ECG [ECG] Routine Y 09/03/17 18:48 Completed EV echocardiogram Routine Y 09/03/17 01:11 Completed Venous Ultrasound [EV venous imaging LE BI] Routine Y 09/03/17 01:20 Completed Date of admission: 09/03/17 00:54 Primary care physician: Matt Almaraz MD Consults: 09/03/17 01:21 Consult to Puller Machine [CONS] Routine Reason for SW Consult: DISCHARGE PLANNING 09/03/17 08:50 Consult to Cardiology [CONS] Routine Comment: Consulting Provider: Cardiology Prema Reason for Consult: New onset afib with rvr and PE with acute hypoxic resp failure Call Completed: No - Patient Status Disposition: Home, Self-Care Condition: Fair - Discharge Instructions Follow Up With: Matt Almaraz MD [Primary Care Provider] - Hospital course: Patient is a 62 year old male with no significant past medical history except for GERD, who presented to the ER on 09/03/17 with chest pain. Patient reported of right-sided chest pain the morning of admission and decided to come to the ER for evaluation. In the ER, EKG showed atrial fibrillation with RVR. D-dimer was positive and CTA chest was done which showed diffuse PE in almost all lobes of the lung as well as hilar lymphadenopathy. Patient was started on IV Cardizem for rate control and IV heparin for anticoagulation. He was admitted to the medical floor for further management. During patients hospital stay, hematology/oncology was consulted with recommendations for treatment with Xarelto for anticoagulation therapy for PE and IV heparin was discontinued. Cardiology was also consulted with recommendations to discontinue IV Cardizem and start patient on oral Cardizem daily. He is now rate controlled and no longer requires supplemental oxygen. He will be discharged to continue Cardizem and Xarelto daily. - Time Spent with Patient Total time spent providing and/or coordinating discharge services: Less than 30 minutes - Constitutional Vitals: Temp Pulse Resp BP Pulse Ox 98.4 F 76 18 105/76 92 09/05/17 11:43 09/05/17 11:43 09/05/17 11:43 09/05/17 11:43 09/05/17 15:56 General appearance: Present: A&O X 3, no acute distress, answers questions appropriately - Respiratory Respiratory exam: Present: CTAB. Absent: accessory muscle use, rales, rhonchi, wheezes - Cardiovascular Cardiovascular exam: Present: RRR, +S1, +S2. Absent: diastolic murmur, gallop, rubs, systolic murmur
[2017-09-05] MEDS ORDERED: FLUARIX QUAD 2017-18 36MOS UP/PF 0.5 ML SYRINGE IM ONE (16:49)
[2017-09-05] MEDS: *HR* Rivaroxaban 10 MG TABLET PO SCH (17:09)
[2017-09-05 18:25] LABS: APTT (LE Anticoag) >150 sec (32-48); Diluted Russell Viper Venom 35 sec (33-44); LE APTT D Heparin Neutralized 54 sec (32-48); LE Coag APTT Mixing 46 sec (32-48); LE Coag Reptilase Time 17.5 sec (<=21.9); PT (LE-Anticoag) 14.5 sec (12.0-15.5); Thrombin Time >150.0 sec (14.7-19.5)
[2017-09-06 07:34] LABS: Protein C, Functional 178 % (83-168); Protein S, Functional 29 % (66-143)
[2017-09-06 07:55] LABS: ANA IgG by ELISA NONE DETECTED (None Detected)
[2017-09-08 19:52] LABS: FACV Specimen WHOLE BLOOD
[2017-09-09 07:49] LABS: Fac V Leiden R506Q Mut Result NEGATIVE
== END 2017-09-05 17:21 | disposition home or self-care (01) | DRG 175 ==
LOC: 2NNU 20:29 → EMEROO 20:29 → 2NNU 09-03 00:38
PROVIDERS: ADMIT Internal Medicine; ATTEND Hospitalist